=== PATIENT | female | born 1980 | race Caucasian/White ===

== ENCOUNTER → 2017-02-17 | Outpatient (CLI) | payer OTHER ==
[~2017-02-17] MED LIST: PRENTAB26 PO
[2017-02-17 13:41] LABS: BLOOD UREA NITROGEN 11 mg/dl (7-18); BUN/CREATININE RATIO 14.9 (10-20); CALCIUM 8.8 mg/dl (8.5-10.1); CARBON DIOXIDE 26 mmol/L (21-32); CHLORIDE 105 mmol/L (98-107); CHOLESTEROL 239 mg/dl (0-200); CREATININE 0.73 mg/dl (0.60-1.20); GLUCOSE 88 mg/dl (70-99); POTASSIUM 4.2 mmol/L (3.5-5.1); SODIUM 139 mmol/L (136-145); TRIGLYCERIDES 56 mg/dl (0-150); VERY LOW DENSITY LIPOPROT CALC 11 mg/dl
[2017-02-17 13:45] LABS: CHOLESTEROL/HDL RATIO 3.6; HDL CHOLESTEROL 67 mg/dl; LDL CHOLESTEROL CALCULATED 161 mg/dl
== END | disposition home or self-care (01) ==
LOC: C.LABPVFM 08:31
PROVIDERS: ATTEND Nurse Practitioner
DX: E78.5 Hyperlipidemia, unspecified (principal)